=== PATIENT | female | born 1985 | race African-American/Black ===

== ENCOUNTER 2017-07-29 10:57 | Emergency (ER) | payer OTHER ==
[~2017-07-29] VITALS: Ht 175.3 cm; Wt 116.3 kg
[2017-07-29 11:04] VITALS: BP 135/90
--- NOTE | 2017-07-29 11:06 | NUR ---
Patient ambulated to bed 3. RN evaluating patient at bedside.
--- NOTE | 2017-07-29 11:16 | NUR ---
32F BIB SELF C/O PROSPER PAIN &NUMBNESS AND PAIN RADIATES TO RFA X 2 DAYS; PT STATES NO TRAUMA OR INJURY TO SITE AT THIS TIME. SKIN IS PINK/WARM/DRY; AAOX4 WITH EVEN AND STEADY GAIT; LUNGS CLEAR BL;PATIENT STATES PAIN OF 9/10 AT THIS TIME; PATIENT POSITIONED FOR COMFORT; HOB ELEVATED; BEDRAILS UP X2; BED DOWN. ER MD MADE AWARE OF PT STATUS.
--- NOTE | 2017-07-29 11:17 | NUR ---
Dr. Duff evaluating patient at bedside.
[2017-07-29] MEDS ORDERED: KETOROLAC 60 MG/2 ML VIAL IM ONE (11:30)
--- NOTE | 2017-07-29 12:04 | NUR ---
Patient transferred to bed 4 for further care. RN re-evaluating patient at bedside.
--- NOTE | 2017-07-29 12:28 | NUR ---
Patient appears to be resting comfortably in bed. Vital Signs within normal limits. Respirations even and unlabored.WILL CONTINUE TO MONITOR.
--- NOTE | 2017-07-29 12:32 | NUR ---
PT TAKEN TO X RAY VIA W/C, ACCOMPANIED BY CAR SUPPLIER.
--- NOTE | 2017-07-29 13:46 | NUR ---
Patient discharged with v/s stable. Written and verbal after care instructions given and explained. Patient alert, oriented and verbalized understanding of instructions. Ambulatory with steady gait. All questions addressed prior to discharge. ID band removed. Patient advised to follow up with PMD. Rx of FLEXERIL 5MG AND IBUPROFEN 800MG given. Patient educated on indication of medication including possible reaction and side effects. Opportunity to ask questions provided and answered.
[2017-07-29 13:47] VITALS: BP 119/73
== END 2017-07-29 13:46 | disposition home or self-care (01) ==
LOC: MED 10:57
DX: M25.511 Pain in right shoulder (principal); R20.2 Paresthesia of skin; R03.0 Elevated blood-pressure reading, without diagnosis of hypertension
CPT/HCPCS: 72050; 96372; 99284; J1885